=== PATIENT | male | born 1980 | race Caucasian/White ===

== ENCOUNTER → 2021-02-21 08:48 | Outpatient (CLI) | payer BC, SELFPAY ==
[2021-02-21 21:03] LABS: SARS-CoV-2 RNA PCR Positive
== END ==
PROVIDERS: PCP Internal Medicine; Visit Provider Nurse Practitioner
DX: U07.1 COVID-19 (principal); R05.9 Cough, unspecified; R51.9 Headache, unspecified
CPT/HCPCS: C9803; U0003; U0005

== ENCOUNTER 2021-02-23 13:36 | Outpatient (RCR) | payer BC, SELFPAY ==
[2021-02-23 15:49] VITALS: BP 140/75; PULSE 92; RESP 20; TEMP 37.1; O2SAT 98
[2021-02-23] MEDS: diphenhydrAMINE HCl CAP 25 MG CAPSULE PO (15:50)
[2021-02-23] MEDS: FAMOTIDINE 20 MG TABLET PO (15:50)
[2021-02-23] MEDS: ACETAMINOPHEN 325 MG TABLET 650 MG PO (15:51)
[2021-02-23 16:52] VITALS: BP 120/77
== END 2021-02-23 17:00 ==
LOC: AMCINF 13:36
PROVIDERS: PCP Nurse Practitioner; Visit Provider Internal Medicine Hematology & Oncology
DX: U07.1 COVID-19 (principal); I10 Essential (primary) hypertension
CPT/HCPCS: A9270; M0243; Q0244

== ENCOUNTER 2022-05-08 08:28 | Outpatient (CLI) | payer BC, SELFPAY ==
--- NOTE | 2022-06-05 20:55 | WPDSLEEPSTUD ---
Sleep Study Date of Study: 05/08/22 Ordering Provider: Shira Mckeon DO Interpreting Physician: Shira Mckeon DO Sleep Study Type: Split Polysomnogram Height: 1.75 m Weight: 85.729 kg Body Mass Index: 27.8 Neck Circumference (inches): 16 Burden: 6 Reason for Sleep Study Previously diagnosed MARITZA on CPAP. Lost 100 pounds after bariatric surgery. Has poor sleep quality. Sleep History The patient is a 41-year-old male with seasonal allergies, depression, GERD, migraines and previously diagnosed sleep apnea then had a sleep study ordered for re-evaluation sleep apnea after significant weight loss. The patient works in law enforcement. The patient occasionally awakens from sleep short of breath. He frequently awakens at night with heartburn, belching or cough. He constantly snores loudly enough that others complain. He frequently has trouble sleeping when he has a cold. He occasionally wakes up gasping for air throughout the night. He frequently has breathing problems at night observed by himself or others. He rarely sweats excessively at night. He frequently has heart palpitations or irregular heartbeats during the night. He rarely falls asleep during the day and never falls asleep while driving. He rarely experiences loss of muscle tone when extremely emotional. He occasionally has trouble at school or work due to sleepiness. He denies sleep paralysis. He rarely experiences vivid dreamlike scenes upon awakening or falling asleep. He denies feeling afraid going to sleep. He occasionally has nightmares. He rarely remembers his dreams. He frequently has thoughts racing through his mind. He rarely feels sad or depressed. He frequently has anxiety. He frequently has muscular tension. He occasionally notices parts of his body jerk. He rarely kicks during the night. He rarely experiences crawling and aching feelings in his legs and rarely has leg pain during the night. He denies grinding his teeth during sleep and rarely awakens with morning jaw pain. He is occasionally bothered by pain during the day and occasionally awakened by pain during the night. He occasionally wakes up feeling stiff in the morning. He occasionally wakes up with sore or achy muscles. He frequently wakes up with pain in the neck, spine and other joints. He goes to bed at 8:00 p.m. on both weekdays and weekends. It takes him 1 hour to fall asleep. He wakes up over 5 per night for unknown reasons but is able to fall back asleep within 5-10 minutes. He wakes up at 2:00 a.m. on both weekdays and weekends. He typically gets 5 hours of sleep per night. He will stay in bed for 10 minutes after waking up in the morning. He currently lives with his spouse and child. He occasionally works split shifts or rotating shifts. He denies consuming any caffeinated beverages within 2 hours of bedtime. He denies engaging in physical exercise before bedtime. He will watch television before falling asleep. He denies taking naps in the afternoon or the evening. He consumes 3 caffeinated beverages per day. He consumes 1 alcoholic beverage per day. He denies tobacco and recreational drug use. [facility] Past Medical History Medical History Allergies Depression Hypertension Migraines Sleep apnea Surgical History Surgical History H/O bariatric surgery 2020 H/O vasectomy 04/2017 History of cholecystectomy History of tonsillectomy 1989 Family History Family History Father Hypertension Family history of chronic obstructive pulmonary disease Family history of diabetes mellitus in first degree relative Family history of congestive heart failure Mother Hypertension Family history of diabetes mellitus in first degree relative Family history of congestive heart failure Acute myoca
[2022-06-05 21:02] VITALS: BMI 27.8
== END 2022-05-09 06:17 | disposition home or self-care (01) ==
PROVIDERS: PCP Internal Medicine; Visit Provider Family Medicine
DX: G47.33 Obstructive sleep apnea (adult) (pediatric) (principal); I10 Essential (primary) hypertension
CPT/HCPCS: 95811

== ENCOUNTER 2023-08-07 14:08 | Outpatient (CLI) | payer BC, SELFPAY ==
--- NOTE | ~2023-08-07 | XR_ITS ---
EXAMINATION: XR wrist LT min 3V DATE: 08/07/2023 14:22 INDICATION: Left wrist pain. TECHNIQUE: 4 views of left wrist were obtained. COMPARISON: Left wrist radiographs 07/29/2018 FINDINGS: Bone alignment is normal. No fracture. Joint spaces are normal. IMPRESSION: 1. Normal left wrist. Reviewed, dictated and finalized at location A. IMPRESSION: 1. Normal left wrist.
== END 2023-08-07 14:09 ==
PROVIDERS: PCP Internal Medicine; Visit Provider Nurse Practitioner
DX: M25.532 Pain in left wrist (principal)
CPT/HCPCS: 73110

== ENCOUNTER 2023-11-27 08:42 | Outpatient (CLI) | payer BC, SELFPAY ==
--- NOTE | ~2023-11-27 | XR_ITS ---
AP and lateral views of the left tibia/fibula Clinical History: Injury Findings: No acute fracture or dislocation is seen. Osseous alignment is anatomic. Joint spaces are p reserved without significant erosive or degenerative change. Mild subcutaneous soft tissue edema note d. Impression: No osseous or articular abnormality. Mild subcutaneous soft tissue edema. Reviewed, dictated and finalized at location . Impression: No osseous or articular abnormality. Mild subcutaneous soft tissue edema.
== END 2023-11-27 08:43 | disposition home or self-care (01) ==
PROVIDERS: PCP Internal Medicine; Visit Provider Nurse Practitioner
DX: R60.9 Edema, unspecified (principal); T14.90XA Injury, unspecified, initial encounter; M79.662 Pain in left lower leg
CPT/HCPCS: 73590